=== PATIENT | male | born 1980 | race Caucasian/White ===

== ENCOUNTER 2023-09-09 10:33 | Emergency (ER) | payer OTHER ==
[2023-09-09] MEDS ORDERED: Bacitracin Oint 1 GM U/D Packet TOP ONE (11:59)
[2023-09-09] MEDS ORDERED: Lidocaine 1% 10 ML MDV INJECT ONE (11:59)
[2023-09-09] MEDS ORDERED: Diphtheria,Pertussis(Acell),Tetanus Vaccine 0.5 ML Syringe IM ONE (12:02)
== END 2023-09-09 13:05 | disposition home or self-care (01) ==
LOC: JP.ED 10:33
DX: S61.211A Laceration without foreign body of left index finger without damage to nail, initial encounter (principal); W26.0XXA Contact with knife, initial encounter
CPT/HCPCS: 12001; 90471; 90715; 99282-25